=== PATIENT | male | born 1980 | race Caucasian/White ===

== ENCOUNTER → 2020-04-23 00:31 | Outpatient (CLI) | payer BC, SELFPAY ==
[2020-04-23 19:48] LABS: SARS-CoV-2 RNA PCR Negative
== END ==
PROVIDERS: PCP Family Medicine; Visit Provider Internal Medicine Gastroenterology
DX: Z01.812 Encounter for preprocedural laboratory examination (principal); Z20.822 Contact with and (suspected) exposure to COVID-19
CPT/HCPCS: C9803; U0003; U0005

== ENCOUNTER 2020-04-26 01:14 | Day surgery (SDC) | payer BC, SELFPAY ==
[2020-04-08 13:23] VITALS: BMI 29.6
[2020-04-26] MEDS: LACTATED RINGERS 1,000 ML 150 ML IV CONT (07:24)
[2020-04-26 07:39] VITALS: BP 166/95; PULSE 90; RESP 16; TEMP 36.1; O2SAT 99
--- NOTE | 2020-04-26 08:14 | WPDANESEPPF ---
Anes - Initial Pre Proc Eval Procedure: Operation Date: 04/26/20 08:45 Proposed Procedures p Colonoscopy - Gareth Pruitt MD Date/Time: 04/26/20 08:14 Surgeon: Gareth Pruitt MD Pre Op Diagnosis: colitis Patient Data Age: 39 Gender: M Height: 6 ft 1 in Weight: 102.2 kg Last Vital Signs Temp 36.1 C L 04/26/20 07:39 Pulse 90 04/26/20 07:39 Resp 16 04/26/20 07:39 BP 166/95 H 04/26/20 07:39 Pulse Ox 99 04/26/20 07:39 Allergies Allergy/AdvReac Type Severity Reaction Status Date / Time Penicillins Allergy Unknown Unknown Verified 04/26/20 07:15 Home Medications Medication Instructions Recorded Confirmed Type buspirone 7.5 mg tablet 7.5 mg PO BID #60 tablet 01/17/20 04/08/20 Rx duloxetine 60 mg capsule,delayed 60 mg PO DAILY #30 cap 02/15/20 04/08/20 Rx release metoprolol succinate 25 mg 25 mg PO DAILY #30 tablet 02/24/20 04/08/20 Rx tablet,extended release 24 hr sodium,potassium,mag sulfates See Rx Instructions .ROUTE 04/01/20 Rx [Suprep Bowel Prep Kit] .COMPLEX #1 ml Patient hx anesthesia problems: none Family hx anesthesia problems: none PMFSH Surgical History Surgical History (Updated 04/26/20 @ 08:15 by Foster Adamson MD) H/O arthroscopic knee surgery History of foot surgery History of shoulder surgery Family History Family History Father Hypertension Mother Hypertension Family history of elevated blood lipids Family history of lung cancer Family history of malignant neoplasm of breast Grandparent Carcinoma of colon Social History Social History Smoking status: Never smoker Alcohol intake: current Drinks per week: 12 Alcohol use details: BEER Living arrangements: with family Gender identity (if verbalized by the patient): Male Spiritual care concerns: No Anes - Eval Final PreProcedure Day of Procedure 04/26/20 08:14 Patient weight: normal (muscular) Heart: regular rate and rhythm Lungs: clear to auscultation Airway: Mallampati scale class II Neurological: alert and oriented Last oral intake: >/= 8 hours ASA classification: II Emergent: no Anesthetic plan: proceed Anesthesia type and monitoring: general GIVS and standard monitoring Informed Consent: The patient's anesthetic plan and its attendant risks and benefits were discussed with the patient/family/POA. Questions were solicited and answers provided to the satisfaction of the patient/family/POA.
--- NOTE | 2020-04-26 08:32 | PM.HPGS ---
History of Present Illness History of Present Illness Consent: Risks, benefits, and alternatives have been discussed and questions answered. Patient agrees to proceed with procedure. Chief complaint: colitis Narrative: Herman Lazaro is a 39 year old male with loose stools for years, no pain or weight loss, does not take anything for that, never had a colonoscopy Review of Systems Constitutional: Constitutional: Denies headache(s) and Denies weakness Eyes: Eyes: Denies blurry vision ENT: Reports Normal hearing present, Denies headache(s) and Denies neck pain Cardiovascular: Cardiovascular: Denies chest pain and Denies dyspnea Respiratory: Respiratory: Denies dyspnea Gastrointestinal: Gastrointestinal: Reports no additional gastrointestinal complaints Genitourinary: Genitourinary: Denies dysuria Musculoskeletal: Musculoskeletal: Denies neck pain Integumentary/Breasts: Skin/Breast: Denies dry skin Neurologic: Reports Normal hearing present, Denies headache(s) and Denies weakness Psychiatric: Psychiatric: Denies anxiety Endocrine: Endocrine: Denies change in body appearance Hematologic/Lymphatic: Hematologic/Lymphatic: Denies easy bleeding Allergic/Immunologic: Allergic/Immunologic: Denies urticaria PMFSH Surgical History Surgical History (Updated 04/26/20 @ 08:15 by Foster Adamson MD) H/O arthroscopic knee surgery History of foot surgery History of shoulder surgery Family History Family History Father Hypertension Mother Hypertension Family history of elevated blood lipids Family history of lung cancer Family history of malignant neoplasm of breast Grandparent Carcinoma of colon Social History Social History Smoking status: Never smoker Alcohol intake: current Drinks per week: 12 Alcohol use details: BEER Living arrangements: with family Gender identity (if verbalized by the patient): Male Spiritual care concerns: No Meds Home Medications and Allergies Home Medications Medication Instructions Recorded Confirmed Type buspirone 7.5 mg tablet 7.5 mg PO BID #60 tablet 01/17/20 04/08/20 Rx duloxetine 60 mg capsule,delayed 60 mg PO DAILY #30 cap 02/15/20 04/08/20 Rx release metoprolol succinate 25 mg 25 mg PO DAILY #30 tablet 02/24/20 04/08/20 Rx tablet,extended release 24 hr sodium,potassium,mag sulfates See Rx Instructions .ROUTE 04/01/20 Rx [Suprep Bowel Prep Kit] .COMPLEX #1 ml Allergies Allergy/AdvReac Type Severity Reaction Status Date / Time Penicillins Allergy Unknown Unknown Verified 04/26/20 07:15 Vital Signs Vital Signs - 24 hr 04/26/20 07:39 Temperature 96.9 F L Pulse Rate 90 Respiratory Rate 16 Blood Pressure 166/95 H Pulse Oximetry 99 Exam Const: General: comfortable and no acute distress HENMT: General nose exam: Normal nares present Eyes: General: appearance normal, both eyes and all related structures Neck: Neck: no JVD Resp: Auscultation: clear to auscultation bilaterally Cardio: Rate: regular rate Rhythm: regular rhythm GI: Inspection: non-distended GI Palp: Yes Soft to palpation Skin: General skin exam: normal color Neuro: General: gait normal Speech: normal speech Extrem: General: normal to inspection Psych: Mental Status: mental status grossly normal Assessment and Plan Assessment and plan (1) Chronic diarrhea: Code(s): K52.9 - Noninfective gastroenteritis and colitis, unspecified Status: Acute Assessment and Plan: colonoscopy with random colon biopsy
[2020-04-26 08:52] VITALS: BP 121/86; PULSE 103; RESP 24; O2SAT 94
[2020-04-26 09:02] VITALS: BP 124/88; PULSE 93; RESP 18; O2SAT 96
[2020-04-26 09:12] VITALS: BP 144/92; PULSE 83; RESP 19; O2SAT 95
== END 2020-04-26 09:26 | disposition home or self-care (01) ==
PROVIDERS: PCP Family Medicine; Visit Provider Internal Medicine Gastroenterology
PROC: 0DJD8ZZ Inspection of Lower Intestinal Tract, Via Natural or Artificial Opening Endoscopic (ICD-10-PCS; CPT 45378; principal; 2020-04-26 08:45)
DX: K52.9 Noninfective gastroenteritis and colitis, unspecified (principal); K57.30 Diverticulosis of large intestine without perforation or abscess without bleeding; K64.8 Other hemorrhoids
CPT/HCPCS: 45380; 88305; J2704; J7120

== ENCOUNTER 2020-05-09 13:31 | Outpatient (CLI) | payer BC, SELFPAY ==
--- NOTE | ~2020-05-09 | MR_ITS ---
EXAMINATION: MR shoulder LT wo/w con DATE: 05/09/2020 14:51 INDICATION: Left shoulder pain and limited range of motion post fall with twisting arm injury 2-3 wee ks prior. TECHNIQUE: Magnetic resonance imaging (MRI) of the left shoulder was performed without and with 20 mL Multihance intravenous contrast. Sequences included axial, sagittal and coronal T1-weighted FSE and T2-weighted FS FSE, sagittal PD-weighted FSE and postcontrast axial, sagittal and coronal T1-weighted FS FSE COMPARISON: None. FINDINGS: Coracoacromial arch: The acromion undersurface is curved in morphology (type II). The coracoacromial ligament is normal. M ild acromioclavicular osteoarthritis. Rotator cuff: Mild tendinopathy without discrete tear of the conjoined portion of the supraspinatus and infraspinat us tendons. There are small foci of susceptibility artifact along the middle facet footplate of the g reater tuberosity suggesting possible suture anchor tracks from prior infraspinatus tendon tear repai r. Correlate with surgical history. The subscapularis and teres minor tendons are normal. Normal rota tor cuff muscle bulk and signal. Biceps tendon, glenoid labrum and glenohumeral cartilage: Long head of the biceps tendon is normal. There are postoperative change of prior labral repair with several suture anchor tracks along the anterior glenoid from the 2:00-5:00 position additional likely suture anchor tracks at the 7:00 position of the posterior glenoid. The residual labral tissue appea rs diminutive with irregular margins and with marginal osteophytes along the rim of the underlying gl enoid consistent with likely chronic labral degeneration. There is peripheral predominant partial thi ckness cartilage loss of the glenoid most prominent posterior superiorly. Scattered partial-thickness chondral ulceration along the humeral head most prominent posterior superiorly there are there is mi ld irregularity to the underlying articular cortex and mild subcortical edema. Fluid: Small glenohumeral joint effusion with proportional extension of a small amount of fluid along the lo ng head biceps tendon sheath and deep subscapular recess. No loose osteochondral bodies. No abnormal fluid signal at the subacromial/subdeltoid bursa to suggest bursitis. Bones/other: No fracture or pathologic marrow replacing process. No concerning enhancing soft tissue nodules. IMPRESSION: 1. Mild glenohumeral osteoarthritis with diffuse labral degeneration and change of prior labral repai r. 2. Mild tendinopathy without discrete tear at the conjoined portion of the supraspinatus and infraspi natus tendons with suggestion of possible prior rotator cuff repair along the greater tuberosity. 3. Likely reactive small glenohumeral joint effusion. Reviewed, dictated and finalized at location B. TR[facility]MER IMPRESSION: 1. Mild glenohumeral osteoarthritis with diffuse labral degeneration and change of prior labral repair. 2. Mild tendinopathy without discrete tear at the conjoined portion of the supr aspinatus and infraspinatus tendons with suggestion of possible prior rotator c uff repair along the greater tuberosity. 3. Likely reactive small glenohumeral joint effusion.
[2020-05-09 14:14] LABS: Estimated Glomerular Filt Rate > 60
== END 2020-05-09 13:32 ==
PROVIDERS: PCP Nurse Practitioner Family; Visit Provider Nurse Practitioner Family
DX: S49.92XA Unspecified injury of left shoulder and upper arm, initial encounter (principal); X58.XXXA Exposure to other specified factors, initial encounter; M19.012 Primary osteoarthritis, left shoulder; M25.412 Effusion, left shoulder
CPT/HCPCS: 73223; A9577

== ENCOUNTER 2021-09-02 17:35 | Emergency (ER) | payer BC, SELFPAY ==
--- NOTE | 2021-09-02 17:49 | ED.UPPEXIN ---
HPI - Extremity Injury (Upper) General Chief Complaint: Wound/Laceration Stated Complaint: middle finger cut with chainsaw Time Seen by Provider: 09/02/21 17:47 History of Present Illness HPI narrative: 40-year-old male presented emergency room for evaluation of a laceration to the left middle finger. Patient states that he was in his backyard using a trimmer helper when he lost control of the device and cut his left middle finger. Patient states that he has not lost any feeling distal to the injury and is able to bend his finger Related Data Home Medications Medication Instructions Recorded Confirmed amphetamine sulfate 20 mg 20 mg PO BID 08/09/21 disintegrating tablet clonazepam 2 mg tablet 2 mg PO DAILY 08/09/21 Allergies Allergy/AdvReac Type Severity Reaction Status Date / Time Penicillins Allergy Unknown Unknown Verified 09/02/21 17:46 Review of Systems Review of Systems: CONSTITUTIONAL: Denies fever, chills, or sweats. EYES: Denies visual changes, redness, or discharge. ENT: Denies rhinorrhea, congestion, sore throat, or otalgia. CARDIOVASCULAR: Denies chest pain, palpitations, or edema. RESPIRATORY: Denies cough or dyspnea. GASTROINTESTINAL: Denies abdominal pain, nausea, vomiting, or diarrhea. GENITOURINARY: Denies dysuria or hematuria. SKIN: Laceration left middle finger MUSCULOSKELETAL: Denies back pain, joint pain, or myalgia. NEUROLOGIC: Denies headache, numbness, dizziness, or weakness. PSYCHIATRIC: Denies anxiety or depression. [facility] Past Medical History Medical History Encounter for screening colonoscopy Surgical History Surgical History H/O arthroscopic knee surgery History of foot surgery History of shoulder surgery Family History Family History Father Hypertension Mother Hypertension Family history of elevated blood lipids Family history of lung cancer Family history of malignant neoplasm of breast Grandparent Carcinoma of colon Social History Social History Smoking status: Never smoker Alcohol intake: current Drinks per week: 12 Alcohol use details: BEER Gender identity (if verbalized by the patient): Male Spiritual care concerns: No Course Vital Signs Vital signs: Vital Signs Temperature 36.8 C 09/02/21 17:50 Pulse Rate 72 09/02/21 17:50 Respiratory Rate 16 09/02/21 17:50 Blood Pressure 141/94 H 09/02/21 17:50 Pulse Oximetry 100 09/02/21 17:50 Oxygen Delivery Room Air 09/02/21 17:50 Temperature 36.8 C 09/02/21 17:50 Pulse Rate 72 09/02/21 17:50 Respiratory Rate 16 09/02/21 17:50 Blood Pressure 141/94 H 09/02/21 17:50 Pulse Oximetry 100 09/02/21 17:50 Oxygen Delivery Room Air 09/02/21 17:50 Procedures Laceration Laceration 1: Date: 09/02/21 Time: 18:39 Site: upper extremity Side (If applicable): left Size (cm): 2.5 Description: linear Depth: simple, single layer Local Anesthetic: lidocaine 1% Amount of anesthesia used (mL): 8 Pre-repair: irrigated ====== Skin Level ====== Skin layer closed with: nylon Size (cm): 4-0 Number of sutures: 5 Technique: simple, interrupted ====== Subcutaneous Layer ====== ====== Muscle Layer ====== ====== Tendon Layer ====== Discharge Plan Discharge Clinical Impression: Laceration of left middle finger Patient Disposition: Home, Self-Care Condition: Stable Instructions: Antibiotic Form, Laceration (ED) Additional Instructions: Sutures to come out in 10 days. Keep wound clean and dry. Monitor for signs of infection which include: Redness, swelling, increased pain, purulent discharge. Take antibiotics as prescribed. Joslyn
[2021-09-02 17:50] VITALS: BP 141/94; PULSE 72; RESP 16; TEMP 36.8; O2SAT 100
== END 2021-09-02 18:50 | disposition home or self-care (01) ==
LOC: ANHED 18:15
PROVIDERS: Emergency Provider Nurse Practitioner Family; PCP Family Medicine
DX: S61.213A Laceration without foreign body of left middle finger without damage to nail, initial encounter (principal); W29.3XXA Contact with powered garden and outdoor hand tools and machinery, initial encounter
CPT/HCPCS: 12001; 99283

== ENCOUNTER 2024-01-31 08:21 | Emergency (ER) | payer BC, SELFPAY ==
--- NOTE | ~2024-01-31 | XR_ITS ---
EXAMINATION: XR foot LT min 3V DATE: 01/31/2024 08:46 INDICATION: Toe pain TECHNIQUE: Dorsoplantar, two oblique and lateral views of the left foot were obtained. COMPARISON: None. FINDINGS: Alignment is normal. Small corticated ossicle at the tip of the medial malleolus which could represen t either a chronic nonunited avulsion fracture fragment or heterotopic ossification related to chroni c deltoid ligament injury. No acute fracture. 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 No erosions to suggest an infl ammatory arthritis. Achilles and plantar calcaneal spurs. There are soft tissue swelling at the medi al side of the first interphalangeal joint. IMPRESSION: 1. 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 Reviewed, dictated and finalized at location [facility]. [facility] IMPRESSION: 1. 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
[2024-01-31 08:44] VITALS: BP 153/103; PULSE 93; RESP 18; O2SAT 100
[2024-01-31] MEDS: IBUPROFEN 400 MG TABLET 800 MG PO (08:53)
[2024-01-31] MEDS: HYDROcodone/acetaminophen (*CRX) 5-325 MG TABLET 1 TAB PO (08:54)
--- NOTE | 2024-01-31 09:04 | ED.GENADULT ---
HPI - General Adult General Chief complaint: Extremity Injury, Lower Stated complaint: L GREAT TOE PAIN/SWELLING Time Seen by Provider: 01/31/24 08:23 History of Present Illness HPI narrative: This is a 43-year-old male presenting ED with chief complaint toe pain. Patient says that over the weekend he was playing football Crocs. He does not remember jamming his toe injury. However today woke up with being red and swollen and painful. No history of gout. No fevers chills nausea vomiting or diarrhea. Related Data Home Medications Medication Instructions Recorded Confirmed amphetamine sulfate 20 mg 20 mg PO BID 08/09/21 05/01/23 disintegrating tablet brexpiprazole 1 mg tablet (Rexulti) 1 mg PO DAILY 05/01/23 05/01/23 Allergies Allergy/AdvReac Type Severity Reaction Status Date / Time Penicillins Allergy Unknown Unknown Verified 05/01/23 08:16 [facility] Past Medical History Medical History BMI 29.0-29.9,adult Encounter for screening colonoscopy Surgical History Surgical History H/O arthroscopic knee surgery History of foot surgery History of shoulder surgery Family History Family History Father Hypertension Mother Hypertension Family history of elevated blood lipids Family history of lung cancer Family history of malignant neoplasm of breast Grandparent Carcinoma of colon Social History Social History Smoking status: Never smoker Alcohol intake: current Drinks per week: 12 Alcohol use details: BEER Living arrangements: with family Gender identity (if verbalized by the patient): Male Spiritual care concerns: No Exam Narrative: APPEARANCE: No apparent distress. Head: atraumatic. EYES: EOMI, NOSE: Atraumatic NECK: Trachea midline RESPIRATORY: No increased rate of breathing CARDIOVASCULAR: RRR, ABDOMINAL: Non-distended MUSCULOSKELETAl: Focal exam of the left foot showed redness swelling and warmth at the base of the great toe sensation intact to the foot cap refill less than 2 seconds. NEURO: Alert. Moving 4/4 extremities SKIN:: Warm, dry. Normal color PSYCHIATRIC: Normal affect Course Vital Signs Vital signs: Vital Signs Pulse Rate 93 11/22/24 08:44 Respiratory Rate 18 01/31/24 08:44 Blood Pressure 153/103 H 01/31/24 08:44 Pulse Oximetry 100 01/31/24 08:44 Oxygen Delivery Room Air 01/31/24 08:44 Pulse Rate 93 01/31/24 08:44 Respiratory Rate 18 01/31/24 08:44 Blood Pressure 153/103 H 01/31/24 08:44 Pulse Oximetry 100 01/31/24 08:44 Oxygen Delivery Room Air 01/31/24 08:44 Medical Decision Making MDM Narrative Medical decision making narrative: -Course: 43-year-old male presenting with podagra. No fevers/risk factors septic arthritis. X-ray showed arthritis the footPatient will be treated for gout. Primary care follow-up. -DDX includes but is not limited to: gout, sport injury, arthritis, septic joint -Independent interpretation of studies: imaging reviewed -Interventions: Motrin, [place], prednisone -Shared decision making / Disposition: discharge -RX Motrin, Tylenol, prednisone taper Vital Signs Vital Signs: Vital Signs Pulse Rate 93 01/31/24 08:44 Respiratory Rate 18 01/31/24 08:44 Blood Pressure 153/103 H 01/31/24 08:44 Pulse Oximetry 100 01/31/24 08:44 Oxygen Delivery Room Air 01/31/24 08:44 Pulse Rate 93 01/31/24 08:44 Respiratory Rate 18 01/31/24 08:44 Blood Pressure 153/103 H 01/31/24 08:44 Pulse Oximetry 100 01/31/24 08:44 Oxygen Delivery Room Air 01/31/24 08:44 Discharge Plan Discharge Clinical Impression: Gout Patient Disposition: Home, Self-Care Condition: Stable Instructions: Antibiotic Form, Gout (ED) Additional Instructions: You were seen in the emergency department for toe pain. This may be due to gout. Please take Motrin Tylenol for pain. please complete a course of steroids. Follow-up with your primary care physician for further management. If you develop fevers or severe pain you can return to ED further management. Prescriptions: New ibuprofen 800 mg tablet 800 mg PO TID PRN (Reason: pain) 7 Days Qty: 21 0RF acetaminophen 500 mg tablet 1,000 mg PO TID PRN (Reason: stephanie) 7 Days Qty: 42 0RF prednisone 10 mg tablets,dose pack See Taper PO DAILY 12 Days Qty: 42 0RF Taper: Prednisone Taper from 60 mg;12 days 60 mg DAILY for 2 Days and 0 Hour 50 mg DAILY for 2 Days and 0 Hour 40 mg DAILY for 2 Days and 0 Hour 30 mg DAILY for 2 Days and 0 Hour 20 mg DAILY for 2 Days and 0 Hour 10 mg DAILY for 2 Days and 0 Hour No Action amphetamine sulfate 20 mg tablet,disintegrating 20 mg PO BID Rx Instructions: administer doses 4-6 hours apart Rexulti 1 mg tablet 1 mg PO DAILY duloxetine 60 mg capsule,delayed release(DR/EC) 60 mg PO DAILY Qty: 90 0RF nebivolol 10 mg tablet See Rx Instructions .ROUTE .COMPLEX Qty: 90 0RF Dose Instruction: TAKE 1 TABLET BY MOUTH DAILY Rx Instructions: TAKE 1 TABLET BY MOUTH DAILY Follow-up/Referrals: Ravi Rider MD [Primary Care Provider] -
[2024-01-31] MEDS: predniSONE 40 MG, predniSONE 10 MG 50 MG PO (09:17)
[2024-01-31 09:25] VITALS: TEMP 36.7
== END 2024-01-31 09:28 | disposition home or self-care (01) ==
PROVIDERS: Emergency Provider Emergency Medicine; PCP Family Medicine
DX: M10.9 Gout, unspecified (principal); Z79.899 Other long term (current) drug therapy
CPT/HCPCS: 73630; 99283; A9270; J7512

== ENCOUNTER 2024-07-19 09:31 | Emergency (ER) | payer BC, SELFPAY ==
--- OUTSIDE RECORDS SUMMARY | 2024-07-19 09:33 | XMS_ITS | Clinical Summary ---
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 [address] [place] [address] PCP - General 05/12/09
--- OUTSIDE RECORDS SUMMARY | 2024-07-19 09:33 | XMS_ITS | Clinical Summary ---
Author Organization [facility] [address] [place] [id number] Care Team Providers Care Practice Consultant Name Role Phone Ravi Rider MD Primary Care Provider [phone] Allergies Active Allergy Reactions Criticality Noted Date Comments Penicillins Other (See comments),Unknown High 08/08/2018 Unknown, done at a young age. Medications clonazePAM (KlonoPIN) 2 mg tablet Take 1 tablet (2 mg total) by mouth 3 (three) times a day as needed Active dextroamphetami ne-amphetamine (ADDERALL) 20 mg tablet Take 1 tablet (20 mg total) by mouth daily [address] (CYMBALTA) 60 mg capsule Take 1 capsule (60 mg total) by mouth every morning 1 Active ergocalciferol (VITAMIN D) 50,000 unit capsule Take 1.25 mg by mouth once a week 4 Active nebivoloL (BYSTOLIC) 10 mg tablet Take 1 tablet (10 mg total) by mouth daily Active methylPREDNISol one (MEDROL DOSEPACK) 4 mg Dosepack Take as directed on package. 21 tablet 5 06/24/19 25 Active Problems No known active problems Encounters Date Type Department Care Team Description 06/17/2024 12:25 PM CDT Ancillary Procedure [facility] Imaging at [address] [address] Acute left ankle pain 06/17/2024 12:20 PM CDT Ancillary Procedure [facility] Imaging at [address] [address] Acute left ankle pain 06/17/2024 12:15 PM CDT Office Visit [facility] Care at [address] [address] Krystina Avila PA Acute left ankle pain (Primary Dx) from Last 3 Months Surgical History Surgery Date Site/Laterality Comments OTHER SURGICAL HISTORY 2 left shoulder labral repairs OTHER SURGICAL HISTORY right foot tendon repair Medical History Medical History Date Comments Hypertension Anxiety Depression Social History Tobacco Use Types Packs/Day Years Used Date Smoking Tobacco: Never AUDIT-C Answer Date Recorded Frequency of Alcohol Consumption Not on file 08/29/2020 Q2: How many drinks containi ng alcohol do you have on a typical day when you are drinking? 1 or 2 08/29/2020 Frequency of Binge Drinking Not on file 08/10 Sex and Gender Information Value Date Recorded Sex Assigned at Not on file Legal Sex Male 8:43 AM [employer] Gender Identity Male 08/29/2020 11:15 AM CDT Sexual Orientation Straight 08/29/2020 11 :15 AM CDT Obstetrics History Last Filed Vital Signs Vital Sign Reading Time Taken Comments Blood Pressure 128/82 06/17/2024 11:56 AM CDT Pulse 62 06/17/2024 11:56 AM CDT Temperature 36.7 C (98 F) 06/17/2024 11:56 AM CDT Respiratory Rate 20 06/17/2024 11:56 AM CDT Oxygen Saturation 99% 06/17/2024 11:56 AM CDT Inhaled Oxygen Concentration - - Weight 112.5 kg (248 lb) 06/17/2024 11:56 AM CDT Height - - Body Mass Index - - Plan of Treatment Health Maintenance Due Date Last Done Comments Depression Screening 1981 Hepatitis C Screening 1981 DTaP/Tdap/Td Vaccine (1 - Tdap) 1992 Varicella Vaccines (1 of 2 - 13+ 2-dose series) 1994 Hepatitis B Screening 10/04/1999 Regular Well Visit/Exam 18-64 10/04/1999 Covid-19 Vaccine (4 - 2023-2 5 season) 2023 01/03/2021, 03/29/2020, 03/08/2020 Influenza Vaccine (Season Ended) 2024 HPV Vaccines Aged Out No longer eligi ble based on patient's age to complete this topic Pneumococcal vaccine <65 Aged Out No longer eligible based on patient's age to complete this topic Procedures Procedure Name Priority Date/Time Associated Diagnosis Comments XR FOOT LEFT 3 OR MORE VIEWS Schedule FANNY, Read FANNY (Appt Today, Awaiting Results) 06/17/2024 12:32 PM CDT Acute left ankle pain XR ANKLE LEFT 3 OR MORE VIEWS Schedule FANNY, Read FANNY (Appt Today, Awaiting Results) 06/17/2024 12:26 PM CDT Acute left ankle pain from Last 3 Months Results * XR Foot Left 3+ Vw (06/17/2024 12:32 PM CDT) Anatomical Region Laterality Modality Lower Extremities, Foot Left Digital Radiography 06/17/2024 3:20 PM CDT Narrative 06/17/2024 3:26 PM CDT EXAM DESCRIPTION: XR FOOT LEFT 3 OR MORE VIEWS; XR ANKLE LEFT 3 OR MORE VIEWS REASON FOR STUDY: pain Pt complains of posterior ankle pain and posterior heel pain for three days. No known injury. No prior surgery to the foot or ankle. TECHNIQUE: Frontal, lateral and oblique radiographic view(s) of the left ankle . Frontal, lateral and oblique radiographic view(s) of the left foot . COMPARISON: None available FINDINGS: Left ankle: No acute fracture or dislocation. No radiopaque foreign body. Left foot: There is no acute fracture or dislocation in the left foot. Mild degenerative changes of the 1st metatarsophalangeal joint. Flattening of the 2nd metatarsal head. Moderate size plantar spur and dorsal enthesophyte. No radiopaque foreign body. IMPRESSION: 1. No acute fracture in the left ankle or foot. 2. Plantar spur, dorsal calcaneal enthesophyte and additional findings as above. THIS IS AN ELECTRONICALLY VERIFIED FINAL REPORT 06/17/2024 3:26 PM - Electronically signed by Elgin TOMAS T: Report ID: [id number] Reading Location: [id number] Procedure Note Elgin Bal DO - 06/17/2024 EXAM DESCRIPTION: XR FOOT LEFT 3 OR MORE VIEWS; XR ANKLE LEFT 3 OR MOREVIEWS REASON FOR STUDY: pain Pt complains of posterior ankle pain and posterior heel pain for threedays. No known injury. No prior surgery to the foot or ankle. TECHNIQUE: Frontal, lateral and oblique radiographic view(s) of the left ankle . Frontal, lateral and oblique radiographic view(s) of the left foot . COMPARISON: None available FINDINGS: Left ankle: No acute fracture or dislocation. No radiopaqueforeign body. Left foot: There is no acute fracture or dislocation in the left foot.Mild degenerative changes of the 1st metatarsophalangeal joint. Flattening ofthe 2nd metatarsal head. Moderate size plantar spur and dorsal enthesophyte.No radiopaque foreign body. IMPRESSION: 1. No acute fracture in the left ankle or foot. 2. Plantar spur, dorsal calcaneal enthesophyte and additional findingsas above. THIS IS AN ELECTRONICALLY VERIFIED FINAL REPORT 06/17/2024 3:26 PM - Electronically signed by Elgin TOMAS T: Report ID: [id number] Reading Location: [id number] Krystina GALLEGOS IMG XR PROCEDURES Final Result * XR Ankle Left 3 or More Views (06/17/2024 12:26 PM CDT) Anatomical Region Laterality Modality Lower Extremities, Ankle Left Digital Radiography 06/17/2024 3:20 PM CDT Narrative 06/17/2024 3:26 PM CDT EXAM DESCRIPTION: XR FOOT LEFT 3 OR MORE VIEWS; XR ANKLE LEFT 3 OR MORE VIEWS REASON FOR STUDY: pain Pt complains of posterior ankle pain and posterior heel pain for three days. No known injury. No prior surgery to the foot or ankle. TECHNIQUE: Frontal, lateral and oblique radiographic view(s) of the left ankle . Frontal, lateral and oblique radiographic view(s) of the left foot . COMPARISON: None available FINDINGS: Left ankle: No acute fracture or dislocation. No radiopaque foreign body. Left foot: There is no acute fracture or dislocation in the left foot. Mild degenerative changes of the 1st metatarsophalangeal joint. Flattening of the 2nd metatarsal head. Moderate size plantar spur and dorsal enthesophyte. No radiopaque foreign body. IMPRESSION: 1. No acute fracture in the left ankle or foot. 2. Plantar spur, dorsal calcaneal enthesophyte and additional findings as above. THIS IS AN ELECTRONICALLY VERIFIED FINAL REPORT 06/17/2024 3:26 PM - Electronically signed by Elgin Bal D.O. AP T: Report ID: [id number] Reading Location: [id number] Procedure Note Elgin Bal DO - 06/17/2024 EXAM DESCRIPTION: XR FOOT LEFT 3 OR MORE VIEWS; XR ANKLE LEFT 3 OR MOREVIEWS REASON FOR STUDY: pain Pt complains of posterior ankle pain and posterior heel pain for threedays. No known injury. No prior surgery to the foot or ankle. TECHNIQUE: Frontal, lateral and oblique radiographic view(s) of the left ankle . Frontal, lateral and oblique radiographic view(s) of the left foot . COMPARISON: None available FINDINGS: Left ankle: No acute fracture or dislocation. No radiopaqueforeign body. Left foot: There is no acute fracture or dislocation in the left foot.Mild degenerative changes of the 1st metatarsophalangeal joint. Flattening ofthe 2nd metatarsal head. Moderate size plantar spur and dorsal enthesophyte.No radiopaque foreign body. IMPRESSION: 1. No acute fracture in the left ankle or foot. 2. Plantar spur, dorsal calcaneal enthesophyte and additional findingsas above. THIS IS AN ELECTRONICALLY VERIFIED FINAL REPORT 06/17/2024 3:26 PM - Electronically signed by Elgin Bal D.O. AP T: Report ID: [id number] Reading Location: [id number] Krystina GALLEGOS IMG XR PROCEDURES Final Result from Last 3 Months [place] Care Teams Practice Consultant Relationship Specialty Start Date End Date Ravi Rider MD PCP - General Family Medicine 08/25/20
--- OUTSIDE RECORDS SUMMARY | 2024-07-19 09:33 | XMS_ITS | Encounter Summary ---
Author Organization [facility] Address [address] [place] [address] Care Team Providers Care Staffing Program Manager Name Role Phone Ravi Rider MD Primary Care Provider [phone] Encounter Details Date Type Department Care Team (Late st Contact Info) Description 03/17/[address] [facility] D[facility] Lab [address] [facility], [place] [address] Ravi Rider MD [address] [place] [address] Social History Tobacco Use Types Packs/Day Years Used Date Smoking Tobacco: Never Smokeless Tobacco: Never Sex and Gender Information Value Date Recorded Sex Assigned at Not on file Legal Sex Male 9:18 PM CDT Gender Identity Not on file Sexual Orientation Not on file documented as of this encounter Plan of Treatment Not on file documented as of this encounter Procedures Procedure Name Priority Date/Time Associated Diagnosis Comments DERMATOPATHOLOGY Routine 03/16/2020 12:0 0 AM COMPENSATION SPECIALIST documented in this encounter Results * DERMATOPATHOLOGY (03/16/2020 12:00 AM COMPENSATION SPECIALIST) Case Report Dermatopathology Report Case: [id number] Authorizing Provider: Ravi Rider MD Collected: 03/16/2020 12:00 AM Ordering Location: [facility] Received: 03/17/2020 11:57 AM Pathologist: Keena Ibrahim MD Specimen: Skin, left forearm 1:09 PM [facility] Final Diagnosis Specimen A. 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 Check margins. 1:09 PM [facility] Gross Description Specimen A: Received is one formalin filled container labeled with the patient's name and designated left forearm. The specimen consists of a non-oriented ellipse of skin measuring [id number], bisected and inked. The epidermal surface consists of a centrally located [id number] papule. Jar 0. 1:09 PM [facility] Microscopic Description Specimen A. SKIN, left forearm: There is epidermal hyperplasia. Within the dermis, there are fibrohistiocytic cells in haphazard array among coarse collagen bundles. In addition, there are vascular channels surrounded by histiocytes that contain hemosiderin and foam cells. The tumor cells are reactive with Factor XIIIA and nonreactive with ERG and MART-1/Melan A. This lesion is present at the margin of the specimen. 1:09 PM [facility] Disclaimer An external and internal positive and negative controls are appropriate for the histochemical, immunohistochemical and immunofluorescence stain(s) in this case (if any), except where stated explicitly. The performance characteristics of the stain(s) cited in this report were developed and its performance characteristic determined by the Dermatopathology Laboratory at [facility], directed by Dr. Suzette Ibrahim. These tests need not be, and therefore are not, approved by the [place] Food and Drug Administration. The tests are used for clinical purposes. Billing Codes Specimen Charges Stain Charges 00492 1 [id number] 1 1 1 1 1:09 PM [facility] Embedded Images 1:09 PM [facility] Pathology/Cytolog y TISSUE SPECIMEN FROM SKIN / Unknown 03/16/2020 03/17/2020 11:57 AM COMPENSATION SPECIALIST Ravi Rider MD LAB - PATHOLOGY/CYTOLOGY [facility] Final Result DERMATOPATHOLOGY LABORATORY [facility] - Department of Dermatology [facility] [address] [place] [address], [address] [phone] documented in this encounter Visit Diagnoses Not on filedocumented in this encounter Care Teams Staffing Program Manager Relationship Specialty Start Date End Date Ravi Rider MD PCP - General Family Medicine 05/03/15 documented as of this encounter
--- OUTSIDE RECORDS SUMMARY | 2024-07-19 09:33 | XMS_ITS | Clinical Summary ---
Author Organization [facility] [employer] Address [address] [place] [address] Care Team Providers Care Director Hedis Name Role Phone Ravi Rider MD Primary Care Provider [phone] Source Comments [facility],non-owned Affiliates and Associated Physician Practices is amultiple site organization consisting of ambulatory clinics and hospital sitesin [place], [place], [place]. This disclosure is being madepursuant to the Care Everywhere program and may not contain all information available regarding this patient. Last updated 17.[facility] Allergies Active Allergy Reactions Criticality Noted Date Comments Penicillins Unknown 08/08/2018 Medications * Be aware that medications may not be up to date on this document. Alwaysverify current medications with the patient. ibuprofen (MOTRIN) 600 MG tablet Take 600 mg by mouth every 6 hours as needed for Pain Active metoprolol succinate XL 24hr (TOPROL XL) 25 MG tablet Take 25 mg by mouth once daily 1 Active traMADol (ULTRAM) 50 MG tablet tramadol 50 mg tablet Active busPIRone (BUSPAR) 7.5 MG tablet Take 7.5 mg by mouth 2 times daily 1 Active DULoxetine (CYMBALTA) 30 MG capsule duloxetine 30 mg capsule,delayed release TK ONE C PO BID Active amphetamine-dex troamphetamine (ADDERALL) 20 MG tablet 1 Active ciprofloxacin (CIPRO) 500 MG tablet Take 500 mg by mouth 2 times daily 1 Active DULoxetine (CYMBALTA) 60 MG capsule TAKE 1 CAPSULE BY MOUTH IN THE MORNING 1 Active sulfamethoxazol e-trimethoprim (BACTRIM DS; SEPTRA DS) 800-160 MG tablet Take 1 tablet by mouth 2 times daily 1 Active Active Problems No known active problems Immunizations Immunization Administration Dates Next Due Covterri [employer] primary monoval ent 12+ yr 0.3mL Purple cap 03/29/2020,03/08/2020 Social History Tobacco Use Types Packs/Day Years Used Date Smoking Tobacco: Never Smokeless Tobacco: Never Sex and Gender Information Value Date Recorded Sex Assigned at Not on file Legal Sex Male 9:18 PM CDT Gender Identity Not on file Sexual Orientation Not on file Last Filed Vital Signs Vital Sign Reading Time Taken Comments Blood Pressure 134/82 08/08/2018 1:02 PM CDT Pulse - - Temperature - - Respiratory Rate - - Oxygen Saturation - - Inhaled Oxygen Concentration - - Weight 102.1 kg (225 lb) 05/24/2020 2:44 PM CDT Height 185.4 cm (6' 1 ) 05/24/2020 2:44 PM CDT Body Mass Index 29.69 05/24/2020 2:44 PM CDT Plan of Treatment Health Maintenance Due Date Last Done Comments HIV SCREENING 1996 HEPATITIS C SCREENING 09/29/1999 DTAP/TDAP/TD VACCINES (1 - Tdap) 2000 HEPATITIS B VACCINE (1 of 3 - 19+ 3-dose series) 2000 COVID-19 VACCINE (3 - 2023-2 5 season) 2023 03/29/2020, 03/08/2020 LIPID TESTING 11/18/2023 11/17/2018 DEPRESSION SCREENING 03/11/2024 INFLUENZA VACCINE (Season Ended) 2024 12/13/2020 ZOSTER VACCINE (1 of 2) 10/04/2031 HIB VACCINE Aged Out No longer eligi ble based on patient's age to complete this topic HPV VACCINE Aged Out No longer eligi ble based on patient's age to complete this topic MENINGOCOCCAL (Group B) VACCINE SHARED DECISION-MAKING Aged Out No longer eligible based on patient's age to complete this topic MENINGOCOCCAL GROUPS A/C/Y/W VACCINE Aged Out No longer eligible b ased on patient's age to complete this topic PNEUMOCOCCAL VACCINE Aged Out No long er eligible based on patient's age to complete this topic Procedures Procedure Name Priority Date/Time Associated Diagnosis Comments LIPID PROFILE Routine 11/17/2018 10:16 AM CDT Primary hypertension Lipid screening from Last 3 Months or Most Recently Relevant to Health Maintenance Results * (ABNORMAL) LIPID PROFILE (11/17/2018 10:16 AM CDT) Cholesterol 210(H) <200 mg/dL 11/17/2018 11:06 AM T [facility] Triglycerides 111 <150 mg/dL 11/17/2018 11:06 AM [facility] HDL Cholesterol 57 >40 mg/dL 9 11:06 AM T [facility] LDL Calculated 131(H) <100 mg/dL 11/17/2018 11:06 AM [facility] VLDL Calculated 22 12 - 38 mg/dL 11/17/2018 11:06 AM [facility] Chol HDL Ratio 3.7 <=5.0 11/17/2018 11:06 AM [facility] Blood BLOOD SPECIMEN / Unknown Lab Venipuncture / Unknown 11/17/2018 10:16 AM CDT 11/17/2018 10:32 AM CDT Narrative [facility] - 11/17/2018 11:06 AM T Lipid Profile Comment: Adult references ranges are the recommendation of the [place] [employer] , for those patients >18 years old. Cholestrol LDL Triglycerides HDL -- -- -- <40 Low <200 <100 <150 Desirable 200-239 130-159 150-199 Borderline High >240 160-189 200-499 >60 High Units for all values are mg/dL Risk factor status for Coronary Artery Disease is necessary to place these lab findings in perspective. Note: This test is for fasting patients only. A non-fasting state may alter some of these results. us Raviemir Rider MD LAB - CHEMISTRY ORDERABLES Fi nal Result [facility] [place] [address] from Last 3 Months or Most Recently Relevant to Health Maintenance Insurance [employer] Care Teams Director Hedis Relationship Specialty Start Date End Date Ravi Rider MD PCP - General Family Medicine 05/03/15
--- OUTSIDE RECORDS SUMMARY | 2024-07-19 09:33 | XMS_ITS | Encounter Summary ---
Author Organization [facility] Address [address] [place] [address] Care Team Providers Care Aids Social Worker Name Role Phone Ravi Rider MD Primary Care Provider [phone] Encounter Details Date Type Department Care Team (Late st Contact Info) Description 10/20/2013 Lab Requisition [facility] [address] [place] [id number] Unknown, Provider Social History Tobacco Use Types Packs/Day Years [...] Procedure Name Priority Date/Time Associated Diagnosis Comments RUBEOLA ANTIBODY IGG Routine 10/20/2013 11:05 AM CDT MUMPS ANTIBODY IGG Routine 10/20/2013 11 :05 AM CDT VARICELLA ZOSTER ANTIBODY IGG Routine 10/20/2013 11:05 AM CDT RUBELLA ANTIBODY IGG Routine 10/20/2013 11:05 AM CDT HEPATITIS B SURFACE ANTIBODY Routine 10/20/2013 11:05 AM CDT documented in this encounter Results * VARICELLA ZOSTER ANTIBODY IGG (10/20/2013 11:05 AM CDT) Pathologist [facility] Varicella zoster Virus Antibody IgG 1312.0 IV 10/22/2013 10:05 AM CDT [facility] Comment: INTERPRETIVE INFORMATION: VZV Ab, IgG 134 IV or less ....... Negative - No significant level of detectable IgG varicella- zoster antibody. 135 -165 IV .......... Equivocal - Repeat testing in 10-14 days may be helpful. 166 IV or greater .... Positive - IgG antibody to varicella-zoster detected, which may indicate a current or past varicella-zoster infection. The best evidence for current infection is a significant change on two appropriately timed specimens, where both tests are done in the same laboratory at the same time. Blood specimen (specimen) BLOOD SPECIMEN / Unknown Venipuncture / Unknown 10/20/2013 11:05 AM CDT 10/20/2013 9:19 PM CDT us Provider Unknown LAB - CHEMISTRY ORDERABLES Freya l Result [facility]) [address] * RUBEOLA ANTIBODY IGG (10/20/2013 11:05 AM CDT) Pathologist [facility] Measles (Rubeola) Antibody IgG >300.0 AU/mL 10/22/2013 10:05 AM CDT [facility] Comment: INTERPRETIVE INFORMATION: Measles (Rubeola) Antibody, IgG 24.9 AU/mL or less........ Negative - No significant level of detectable measles (rubeola) IgG antibody. 25.0-29.9 AU/mL .......... Equivocal - Repeat testing in 10-14 days may be helpful. 30.0 AU/mL or greater .... Positive - IgG antibody to measles (rubeola) detected which may indicate a current or past exposure/immunization to measles (rubeola). The best evidence for current infection is a significant change on two appropriately timed specimens, where both tests are done in the same laboratory at the same time. Blood specimen (specimen) BLOOD SPECIMEN / Unknown Venipuncture / Unknown 10/20/2013 11:05 AM CDT 10/20/2013 9:19 PM CDT us Provider Unknown LAB - CHEMISTRY ORDERABLES Freya l Result Performing Organization Address [facility] de Phone Number [facility]) [address] * MUMPS ANTIBODY IGG (10/20/2013 11:05 AM CDT) Mumps Virus Antibody IgG 56.5 AU/mL 10/22/2013 10:05 AM CDT [facility] Comment: INTERPRETIVE INFORMATION: Mumps Ab, IgG by BRADY 8.9 AU/mL or less .... Negative - No significant level of detectable IgG mumps virus antibody 9.0-10.9 AU/mL ....... Equivocal - Repeat testing in 10-14 days may be helpful 11.0 AU/mL or greater: Positive - IgG antibody to mumps virus detected, which may indicate a current or past exposure/ immunization to mumps virus. The best evidence for current infection is a significant change on two appropriately timed specimens, where both tests are done in the same laboratory at the same time. Blood specimen (specimen) BLOOD SPECIMEN / Unknown Venipuncture / Unknown 10/20/2013 11:05 AM CDT 10/20/2013 9:19 PM CDT Provider Unknown LAB - CHEMISTRY ORDERABLES Freya l Result Performing Organization Address [facility] de Phone Number [facility] ([facility] [address] * RUBELLA ANTIBODY IGG (10/20/2013 11:05 AM CDT) Rubella Antibody IgG Positive - Immune 10/20/2013 10:09 PM CDT [facility] Blood BLOOD SPECIMEN / Unknown Venipuncture / Unknown 10/20/2013 11:05 AM CDT 10/20/2013 9:19 PM CDT Provider Unknown LAB - SEROLOGY ORDERABLES Final Result Performing Organization Address [facility]/ZIP Co de Phone Number [facility] [address] [place] [address] * (ABNORMAL) HEPATITIS B SURFACE ANTIBODY (10/20/2013 11:05 AM CDT) HBsAb REACTIVE(A ) Non Reactive 10/20/2013 10:24 PM CDT [facility] Blood BLOOD SPECIMEN / Unknown Venipuncture / Unknown 10/20/2013 11:05 AM CDT 10/20/2013 9:19 PM CDT us Provider Unknown LAB - CHEMISTRY ORDERABLES Freya l Result [facility] [address] [place] [address] documented in this encounter Visit Diagnoses Not on filedocumented in this encounter Care Teams Aids Social Worker Relationship Specialty Start Date End Date Ravi Rider MD PCP - General Family Medicine 05/03/15 documented as of this encounter
--- OUTSIDE RECORDS SUMMARY | 2024-07-19 09:33 | XMS_ITS | Clinical Summary ---
Author Organization [facility] Address [facility] [place] [address] Care Team Providers Care Database Security Expert Name Role Phone Ravi Rider MD Primary Care Provider [phone] Allergies Active Allergy Reactions Criticality Noted Date Comments Penicillin V Other (see comment) High 04/23/2023 Unknown, done at a young age. Medications HYDROcodone-maddy taminophen (NORCO) 5-325 MG tabletIndicatio ns:Acute Pain < 7 Day Supply Take 1 tablet by mouth every 4 (four) hours as needed for Pain (max 6 tabs a day). Indications: Acute Pain < 7 Day Supply 21 tablet 04/23/2023 Active DULoxetine (CYMBALTA) 30 MG capsule Take 1 capsule (30 mg total) by mouth daily. Active DULoxetine (CYMBALTA) 60 MG capsule Take 1 capsule (60 mg total) by mouth daily. 02/14/2023 Active REXULTI 1 MG tablet Take 1 tablet (1 mg total) by mouth daily. 04/22/2023 Active clonazePAM (KLONOPIN) 2 MG tablet Take 1 tablet (2 mg total) by mouth 3 (three) times daily as needed for Anxiety. 04/09/2023 Active nebivolol (BYSTOLIC) 10 MG tablet Take 1 tablet (10 mg total) by mouth daily. 03/25/2023 Active ibuprofen (MOTRIN) 600 MG tablet Take 1 tablet (600 mg total) by mouth every 6 (six) hours as needed for Pain. Active amphetamine-dex troamphetamine (ADDERALL) 20 MG tablet Take 1 tablet (20 mg total) by mouth daily. 04/13/2023 Active vitamin D2, ergocalciferol, (DRISDOL) 1.25 mg capsule Take 1 capsule (1.25 mg total) by mouth once a week. 03/15/2023 Active Active Problems Problem Noted Date Diagnosed Date Closed Colles' fracture of left radius 2 Immunizations Immunization Administration Dates Next Due MMR (MMRII) 05/06/1991 Family History Medical History Relation Comments Cancer Mother Breast/Lung Hypertension Mother Relation Status Comments Mother Social History Tobacco Use Types Packs/Day Years Used Date Smoking Tobacco: Never Passive Smoke Exposure: Never Smokeless Tobacco: Never Tobacco Cessation:Counseling Given: No Comments:Never Smoked Alcohol Use Standard Drinks/Week Comments Yes 20 (1 standard drink = 0.6 oz pu re alcohol) Occasional PHQ-2 Answer Date Recorded Patient Health Questionnaire-2 Score 0 06/13/2023 Sex and Gender Information Value Date Recorded Sex Assigned at Not on file Legal Sex Male 8:34 PM CDT Gender Identity Not on file Sexual Orientation Not on file Last Filed Vital Signs Vital Sign Reading Time Taken Comments Blood Pressure 150/94 06/13/2023 3:37 PM CDT Pulse 67 06/13/2023 3:37 PM CDT Temperature 36.7 C (98 F) 06/13/2023 3:37 PM CDT Respiratory Rate 18 04/30/2023 2:11 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 Oxygen Saturation 100% 06/13/2023 3:37 PM CDT Inhaled Oxygen Concentration - - Weight 106 kg (233 lb 9.6 oz) 06/13/2023 3:37 PM CDT Height 185.4 cm (6' 1 ) 06/13/2023 3:37 PM CDT Body Mass Index 30.82 06/13/2023 3:37 PM CDT Plan of Treatment Health Maintenance Due Date Last Done Comments Annual Physical 1984 Hepatitis C 10/04/1999 DTaP, Tdap and Td Vaccines ( 1 - Tdap) 2000 Hepatitis B Vaccines (1 of 3 - 19+ 3-dose series) 2000 COVID-19 Vaccine ( - 2023-2 5 season) 2023 01/03/2021, 03/29/2020, 03/08/2020 PHQ-2 (Physician [place]) 03/11/2024 06/13/2023 HPV Vaccines Aged Out No longer eligi ble based on patient's age to complete this topic Meningococcal B Vaccine Aged Out No l onger eligible based on patient's age to complete this topic Meningococcal Vaccine Aged Out No alfonso shelly eligible based on patient's age to complete this topic Pneumococcal Vaccine: Pediatrics (0 to 5 Years) and At-Risk Patients (6 to 49 Years) Aged Out No longer eligible b ased on patient's age to complete this topic RSV Immunizations Under 20 Months Aged Out No longer eligible b ased on patient's age to complete this topic Insurance Care Teams Database Security Expert Relationship Specialty Start Date End Date Ravi Rider MD [address] [place] [address] PCP - General FAMILY PRACTICE 04/23/23
--- OUTSIDE RECORDS SUMMARY | 2024-07-19 09:33 | XMS_ITS | Referral Summary ---
Author Organization [facility] [address] [place] [id number] Care Team Providers Care Datapower Developer Name Role Phone Ravi Rider MD Primary Care Provider [phone] Encounters Date Type Department Care Team Description 06/17/2024 12:25 PM CDT Ancillary Procedure [facility] at [address] [id number] Acute left ankle pain 06/17/2024 12:20 PM CDT Ancillary Procedure [facility] at [address] [id number] Acute left ankle pain 06/17/2024 12:15 PM CDT Office Visit [facility] at [address] [id number] Krystina Avila PA Acute left ankle pain (Primary Dx) from Last 3 Months Allergies Active Allergy Reactions Criticality Noted Date [...] 25 Active Problems No known active problems Social History Tobacco Use Types Packs/Day Years [...] on file Legal Sex Male 8:43 AM 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 AP T: Report ID: [id number] Reading Location: [id number] Procedure Note Elgin Bal, DO - 06/17/2024 EXAM DESCRIPTION: XR FOOT [...] signed by Elgin TOMAS T: Report ID: [id number] Reading Location: [place] [address] Krystina GALLEGOS IMG XR PROCEDURES Final Result from Last [address] [address] Care Teams Datapower Developer Relationship Specialty Start Date End Date Ravi Rider MD PCP - General Family Medicine 08/25/20
[2024-07-19 09:50] VITALS: BP 149/90; PULSE 66; RESP 18; TEMP 36.8; O2SAT 100
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
--- NOTE | 2024-07-19 10:41 | PC.NURSE ---
1036- silver sulfadine applied. Computer stating, medication unverified.
[2024-07-19] MEDS: TETANUS,DIPHTHERIA,AC PERTUSSIS ADULT (0.5 ML) BOOSTRIX IM (10:48)
== END 2024-07-19 11:01 | disposition home or self-care (01) ==
PROVIDERS: Emergency Provider Registered Nurse; PCP Family Medicine
DX: T24.201A Burn of second degree of unspecified site of right lower limb, except ankle and foot, initial encounter (principal); X03.8XXA Other exposure to controlled fire, not in building or structure, initial encounter; F90.9 Attention-deficit hyperactivity disorder, unspecified type
CPT/HCPCS: 16020; 90471; 90715; 99213; A9270; G0463

== ENCOUNTER 2024-12-24 08:41 | Outpatient (CLI) | payer BC, SELFPAY ==
--- NOTE | ~2024-12-24 | US_ITS ---
ULTRASOUND ABDOMEN LIMITED (RIGHT UPPER QUADRANT) Clinical History: elevated liver enzymes, abn liver function Comparison: None Technique: Right upper quadrant sonography Findings: Liver: Enlarged. Echogenic. Nodular contour. No intrahepatic biliary ductal dilatation. Normal hepatopedal flow main portal vein. Common Duct: Normal caliber. 4 mm. Gallbladder: No stones. No wall thickening. No pericholecystic fluid. Pancreas: Unremarkable. IMPRESSION: 1. Hepatomegaly with steatosis and/or hepatocellular disease. 2. No acute findings. Reviewed, dictated and finalized at location R.
--- NOTE | ~2024-12-24 | MR_ITS ---
EXAMINATION: MR abdomen wo con DATE: 12/24/2024 10:22 INDICATION: Abnormal liver function tests. TECHNIQUE: Magnetic resonance imaging (MRI) of the abdomen was performed without intravenous contrast. COMPARISON: Ultrasound 12/24/2024 FINDINGS: There is diffuse hepatic steatosis. There is mild splenomegaly. The gallbladder, pancreas, adrenal glands, and left kidney are normal. There is a 4 mm cyst in right kidney. There are no dilated loops of bowel. There are no pathologically enlarged lymph nodes. There is no ascites. IMPRESSION: 1. Diffuse hepatic steatosis. 2. Mild splenomegaly. Reviewed, dictated and finalized at location E.
== END 2024-12-24 08:42 | disposition home or self-care (01) ==
PROVIDERS: PCP Internal Medicine Endocrinology, Diabetes & Metabolism; Visit Provider Internal Medicine Endocrinology, Diabetes & Metabolism
DX: R74.8 Abnormal levels of other serum enzymes (principal); R94.5 Abnormal results of liver function studies; K76.0 Fatty (change of) liver, not elsewhere classified; R16.1 Splenomegaly, not elsewhere classified
CPT/HCPCS: 74181; 76705